=== PATIENT | female | born 1995 | race Caucasian/White ===

== ENCOUNTER 2018-05-05 13:58 | Emergency (ER) | payer BC, MEDICAID ==
[~2018-05-05] VITALS: Ht 160 cm; Wt 81.6 kg
[2018-05-05 14:16] VITALS: BP 136/63
--- NOTE | 2018-05-05 14:57 | NUR ---
PT TO ER BED 10
--- NOTE | 2018-05-05 15:00 | NUR ---
BIB SELF C/O TOE PAIN 6/10 THROBBING PAIN THAT INCREASES WITH PRESSURE. PT STATES SHE KICKED L PINKY TOE AGAINST SOFA AT 07:00 THIS MORNING. PINKY TOE +ERYTHEMA, EDEMA, AND BRUISING. CAP REFILL <3 SECONDS, PALPABLE PULSES. MEDHX: ASTHMA RX:ALBUTEROL
--- NOTE | 2018-05-05 15:29 | NUR ---
DR FREED AT BEDSIDE
[2018-05-05] MEDS ORDERED: IBUPROFEN 800 MG TAB PO ONE (15:30)
--- NOTE | 2018-05-05 15:53 | NUR ---
XRAY AT BEDSIDE
--- NOTE | 2018-05-05 16:30 | NUR ---
PT ON STRETCHER IN SUPINE POSITION, EYES OPEN, A/OX4, RESPIRATIONS EVEN AND UNLABORED. DENIES CP/SOB AT THIS TIME. BED IN LOW POSITION, LOCKED, SIDERAILS UP. WILL CONTINUE TO MONITOR CLOSELY.
[2018-05-05 17:38] VITALS: BP 130/72
--- NOTE | 2018-05-05 17:38 | NUR ---
Patient discharged with v/s stable. Written and verbal after care instructions given and explained. Patient alert, oriented and verbalized understanding of instructions. Ambulatory with steady gait. All questions addressed prior to discharge. ID band removed. Patient advised to follow up with PMD. Rx of NAPROSYN, TRAMADOL given. Patient educated on indication of medication including possible reaction and side effects. Opportunity to ask questions provided and answered.
== END 2018-05-05 17:38 | disposition home or self-care (01) ==
LOC: MED 13:58
DX: S90.122A Contusion of left lesser toe(s) without damage to nail, initial encounter (principal); J45.909 Unspecified asthma, uncomplicated; W22.09XA Striking against other stationary object, initial encounter; Y93.89 Activity, other specified; Y92.89 Other specified places as the place of occurrence of the external cause; Y99.8 Other external cause status
CPT/HCPCS: 73660; 99283; Q0092